=== PATIENT | male | born 1960 | race Caucasian/White ===

== ENCOUNTER 2021-07-15 18:58 | Observation (INO) | payer MEDICAID, SELFPAY ==
[~2021-07-15] VITALS: Ht 167.6 cm; Wt 81.6 kg
[2021-07-15 19:07] VITALS: BP 113/63
[2021-07-15 19:36] LABS: BASOPHILS # (AUTO) 0.1 K/uL (0.00-0.22); BASOPHILS % (AUTO) 0.7 % (0.0-2.0); EOSINOPHILS # (AUTO) 0.2 K/uL (0-0.4); EOSINOPHILS % (AUTO) 1.8 % (0.0-4.0); HEMATOCRIT 34.8 % (36-52); HEMOGLOBIN 11.9 g/dL (12.0-18.0); LYMPHOCYTES % (AUTO) 9.2 % (20.5-51.1); MEAN CORPUSCULAR HEMOGLOBIN 36 pg (27-31); MEAN CORPUSCULAR HGB CONC 34 g/dL (33-37); MEAN CORPUSCULAR VOLUME 104.2 fL (80-94); MONOCYTES # (AUTO) 0.9 K/uL (0.8-1.0); MONOCYTES % (AUTO) 8.4 % (1.7-9.3); NEUTROPHILS # (AUTO) 8.3 K/uL (1.8-7.7); NEUTROPHILS % (AUTO) 79.9 % (42.2-75.2); PLATELET COUNT (AUTO) 128 K/uL (140-450); RED BLOOD CELL COUNT(AUTO) 3.34 MIL/uL (4.20-6.10); RED CELL DISTRIBUTION WIDTH 14.8 % (11.6-13.7); WHITE BLOOD COUNT (AUTO) 10.4 K/uL (4.8-10.8)
[2021-07-15 20:10] LABS: ALBUMIN 4.2 g/dL (3.4-5.0); ASPARTATE AMINOTRANSFERASE 68 U/L (15-37); CARBON DIOXIDE 21.8 mmol/L (21-32); CHLORIDE 103 mmol/L (98-107); FREE T4 (FREE THYROXINE) 0.95 ng/dL (0.76-1.46); GFR ARICAN-AMERICAN 98 mL/min (>90); GLUCOSE 114 mg/dL (74-106); POTASSIUM 3.8 mmol/L (3.5-5.1); SODIUM SERUM 139 mmol/L (136-145); THYROID STIMULATING HORMONE 1.66 uIU/mL (0.34-3.74); TOTAL BILIRUBIN 1.4 mg/dL (0.0-1.0); UREA NITROGEN, BLOOD 26 mg/dL (7-18)
[2021-07-15 20:11] LABS: SALICYLATE < 2.8 mg/dL (2.8-20.0)
[2021-07-15] MEDS ORDERED: HALOPERIDOL IM 5 MG/ML VIAL IVP ONE (21:20)
[2021-07-15] MEDS ORDERED: THIAMINE 200 MG/2 ML VIAL IV ONE (21:55)
[2021-07-15] MEDS ORDERED: POTASSIUM CHLORIDE 10 MEQ TABER PO PRN (22:15)
[2021-07-15] MEDS ORDERED: DOCUSATE SODIUM 100 MG GELCAP PO PRN (22:15)
[2021-07-15] MEDS ORDERED: MORPHINE SULFATE 2 MG/ML SYR IVP PRN (22:15)
[2021-07-15] MEDS: NACL 0.9% 1,000 ML IV SCH (22:15)
[2021-07-15] MEDS ORDERED: SODIUM PHOS / POTASSIUM PHOS 1 PKT PDR PO PRN (22:15)
[2021-07-15] MEDS ORDERED: MAGNESIUM OXIDE 400 MG TAB PO PRN (22:15)
[2021-07-15] MEDS ORDERED: ONDANSETRON 4 MG/2 ML VIAL IM/IVP PRN (22:15)
[2021-07-15] MEDS ORDERED: ACETAMINOPHEN 325 MG TAB PO PRN (22:15)
[2021-07-15] MEDS ORDERED: HYDROcodone/APAP 5/325 MG 1 TAB TAB PO PRN (22:15)
[2021-07-15 22:54] LABS: MAGNESIUM 1.7 mg/dL (1.8-2.4); PHOSPHORUS 5.6 mg/dL (2.5-4.9)
[2021-07-15 23:15] LABS: FREE T4 (FREE THYROXINE) 0.92 ng/dL (0.76-1.46); THYROID STIMULATING HORMONE 1.76 uIU/mL (0.34-3.74)
[2021-07-16 07:19] LABS: BASOPHILS # (AUTO) 0.1 K/uL (0.00-0.22); BASOPHILS % (AUTO) 0.3 % (0.0-2.0); EOSINOPHILS # (AUTO) 0.1 K/uL (0-0.4); EOSINOPHILS % (AUTO) 0.3 % (0.0-4.0); HEMATOCRIT 33.8 % (36-52); HEMOGLOBIN 11.7 g/dL (12.0-18.0); LYMPHOCYTES # (AUTO) 0.7 K/uL (2.0-11.5); LYMPHOCYTES % (AUTO) 4.4 % (20.5-51.1); MEAN CORPUSCULAR HEMOGLOBIN 36 pg (27-31); MEAN CORPUSCULAR HGB CONC 35 g/dL (33-37); MEAN CORPUSCULAR VOLUME 104.5 fL (80-94); MONOCYTES # (AUTO) 1.3 K/uL (0.8-1.0); MONOCYTES % (AUTO) 7.6 % (1.7-9.3); NEUTROPHILS # (AUTO) 14.8 K/uL (1.8-7.7); NEUTROPHILS % (AUTO) 87.4 % (42.2-75.2); PLATELET COUNT (AUTO) 139 K/uL (140-450); RED BLOOD CELL COUNT(AUTO) 3.23 MIL/uL (4.20-6.10); RED CELL DISTRIBUTION WIDTH 14.7 % (11.6-13.7)
[2021-07-16 07:40] LABS: ANION GAP 18.3 (8-16); CARBON DIOXIDE 20.5 mmol/L (21-32); POTASSIUM 4.8 mmol/L (3.5-5.1)
[2021-07-16 08:05] VITALS: BP 118/84
[2021-07-16] MEDS: chlordiazePOXIDE 25 MG CAP PO SCH ×2 (08:32→13:27)
[2021-07-16] MEDS: NACL 0.9% 1,000 ML IV SCH (08:33)
[2021-07-16] MEDS ORDERED: THIAMINE 100 MG TAB PO SCH (09:00)
[2021-07-16] MEDS ORDERED: MULTIVITAMIN/MINERALS 1 TAB PO SCH (09:00)
[2021-07-16] MEDS ORDERED: FOLIC ACID 1 MG TAB PO SCH (09:00)
[2021-07-16] MEDS ORDERED: PANTOPRAZOLE 40 MG INJ VIAL IVP SCH (09:00)
[2021-07-16 13:21] LABS: APPEARANCE,URINE CLEAR (CLEAR); BILIRUBIN,URINE 1+ (NEGATIVE); BLOOD, URINE 3+ (NEGATIVE); COLOR,URINE DARK YELLOW (YELLOW); LEUKOCYTE ESTERASE ,URINE TRACE (NEGATIVE); NITRITE, URINE NEGATIVE (NEGATIVE); PH,URINE 5.5 (5.0-9.0); UGLUCOSE NEGATIVE (NEGATIVE)
[2021-07-16 13:36] LABS: BARBITURATE, URINE NEGATIVE ng/ml (NEG <=200); BENZODIAZEPINE, URINE POSITIVE ng/mL (NEG <=200)
[2021-07-16 13:37] LABS: CANNABINOID, URINE NEGATIVE ng/mL (NEG <=50); COCAINE, URINE NEGATIVE ng/mL (NEG <=300); OPIATE, URINE POSITIVE ng/mL (NEG <=2000); PHENCYCLIDINE SCREEN,URINE NEGATIVE ng/mL (NEG <=25)
[2021-07-16 13:39] LABS: RBC,URINE >100 /HPF (0-5); WBC,URINE 0-5 /HPF (0-5)
[2021-07-16] MEDS ORDERED: FOLI1TAB90 PO (14:58)
[2021-07-16] MEDS ORDERED: PANT40EC PO (14:58)
[2021-07-16] MEDS ORDERED: LIB25 PO (14:58)
[2021-07-16] MEDS ORDERED: THIA-34 PO (14:58)
[2021-07-16 15:57] VITALS: BP 124/72
[2021-07-17] MEDS ORDERED: PANT40EC PO ×2 (09:31→13:26)
[2021-07-17] MEDS ORDERED: THIA-34 PO ×2 (09:31→13:26)
[2021-07-17] MEDS ORDERED: FOLI1TAB90 PO ×2 (09:31→13:26)
== END 2021-07-16 16:25 | disposition home or self-care (01) ==
LOC: MED 18:58 → MMU 22:19 → INTOOBSV 22:19 → MTU 07-16 05:38
PROVIDERS: ADMIT Hospitalist; ATTEND Hospitalist
DX: F10.129 Alcohol abuse with intoxication, unspecified (principal); Z20.822 Contact with and (suspected) exposure to COVID-19; G92.9 Unspecified toxic encephalopathy; G89.29 Other chronic pain; M54.9 Dorsalgia, unspecified; D72.829 Elevated white blood cell count, unspecified; D69.6 Thrombocytopenia, unspecified; E80.6 Other disorders of bilirubin metabolism; R74.01 Elevation of levels of liver transaminase levels; E83.42 Hypomagnesemia; R31.9 Hematuria, unspecified; F17.210 Nicotine dependence, cigarettes, uncomplicated; Z79.899 Other long term (current) drug therapy; Z23 Encounter for immunization; W19.XXXA Unspecified fall, initial encounter; Y93.89 Activity, other specified; Y92.89 Other specified places as the place of occurrence of the external cause
CPT/HCPCS: 36415; 70450; 71045; 80048; 80053; 80305; 81001; 82140; 82150; 83690; 83735; 84100; 84439; 84443; 85025; 87081; 87426; 90471; 90715; 93005; 96361; 96374; 96375; 99291; C9113; G0378; G0480; G0482; J1630; J3411; Q0092

== ENCOUNTER 2022-07-27 18:51 | Emergency (ER) | payer MEDICAID ==
[~2022-07-27] VITALS: Ht 175.3 cm; Wt 83.9 kg
[~2022-07-27 18:51] MED LIST: FOLI1TAB90 PO; LIB25 PO; PANT40EC PO; THIA-34 PO
[2022-07-27 18:57] VITALS: BP 133/83
--- NOTE | 2022-07-27 19:05 | NUR ---
pt refusing any treatment from dr sibley, refusing to answer questions pertaining treatment, stating that "nothing is wrong with me, I dont do any drugs"
--- NOTE | 2022-07-27 19:09 | NUR ---
PT UNABLE TO AMBULATE. PT TAKEN TO BED 06.
[2022-07-27] MEDS ORDERED: HALOPERIDOL IM 5 MG/ML VIAL IM ONE ×2 (19:10→23:10)
[2022-07-27] MEDS ORDERED: LORazepam 2 MG/ML VIAL IM ONE ×2 (19:10→23:10)
--- NOTE | 2022-07-27 19:30 | NUR ---
61YR OLD BIB EMS C/O ETOH . PT IS A&OX3. PT STATES HE IS UNAWARE OF WHY HES HERE. DENIES CP OR SOB. PT IS ON BEDSIDE PRINTING TABLE HAND. HOB ELEVATED. BED AT LOWEST POSITION SIDE RAILS UP X2 NKDA NO MED HX
[2022-07-27 19:41] LABS: BASOPHILS # (AUTO) 0.1 K/uL (0.00-0.22); BASOPHILS % (AUTO) 0.8 % (0.0-2.0); EOSINOPHILS # (AUTO) 0.3 K/uL (0-0.4); EOSINOPHILS % (AUTO) 4.1 % (0.0-4.0); HEMATOCRIT 42.5 % (36-52); HEMOGLOBIN 14.5 g/dL (12.0-18.0); LYMPHOCYTES # (AUTO) 2.9 K/uL (2.0-11.5); LYMPHOCYTES % (AUTO) 42.2 % (20.5-51.1); MEAN CORPUSCULAR HEMOGLOBIN 35 pg (27-31); MEAN CORPUSCULAR HGB CONC 34 g/dL (33-37); MEAN CORPUSCULAR VOLUME 103.6 fL (80-94); MONOCYTES # (AUTO) 0.5 K/uL (0.8-1.0); MONOCYTES % (AUTO) 6.6 % (1.7-9.3); NEUTROPHILS # (AUTO) 3.2 K/uL (1.8-7.7); NEUTROPHILS % (AUTO) 46.3 % (42.2-75.2); PLATELET COUNT (AUTO) 165 K/uL (140-450); RED CELL DISTRIBUTION WIDTH 14.7 % (11.6-13.7)
[2022-07-27 20:10] LABS: ANION GAP 14.8 (8-16); CARBON DIOXIDE 25.8 mmol/L (21-32); CREATININE 0.8 mg/dL (0.6-1.3); POTASSIUM 3.6 mmol/L (3.5-5.1); TOTAL BILIRUBIN 0.6 mg/dL (0.0-1.0)
--- NOTE | 2022-07-27 22:12 | NUR ---
PT IS RESTING . PT MOTHER CALLED REGARDING PT CONDITION. WILL UPDATE FAMILY AT A LATER TIME. RESP EVEN AND UNLABORED. PT ON BEDSIDE CLEANER FURNITURE. HOB ELEVATED. PENDING DISPO
[2022-07-27] MEDS ORDERED: diphenhydrAMINE 50 MG/ML VIAL IM ONE (23:10)
--- NOTE | 2022-07-27 23:10 | NUR ---
DR TERRELL AT BEDSIDE. PT TRYING TO LEAVE, REDIRECTED PT BACK IN BED. PENDING MED ORDERS
[2022-07-28] MEDS ORDERED: diphenhydrAMINE 50 MG/ML VIAL ONE (00:50)
[2022-07-28] MEDS ORDERED: HALOPERIDOL IM 5 MG/ML VIAL ONE (00:50)
[2022-07-28] MEDS ORDERED: LORazepam 2 MG/ML VIAL ONE (00:51)
--- NOTE | 2022-07-28 01:02 | NUR ---
PT AWAKE WANTING TO LEAVE PT GIVEN MEDS . REDIRTECTED PT BACK TO BED
--- NOTE | 2022-07-28 01:18 | NUR ---
PT ON BEDSIDE MONITOR RESTING RESP EVEN AND UNLABORED. HOB ELEVATED. PT EGAR TO LEAVE .
--- NOTE | 2022-07-28 01:19 | NUR ---
URINE OBTAINED AND SENT TO LAB
[2022-07-28 01:34] LABS: BARBITURATE, URINE NEGATIVE ng/ml (NEG <=200); BENZODIAZEPINE, URINE POSITIVE ng/mL (NEG <=200); CANNABINOID, URINE NEGATIVE ng/mL (NEG <=50); COCAINE, URINE NEGATIVE ng/mL (NEG <=300); OPIATE, URINE NEGATIVE ng/mL (NEG <=2000); PHENCYCLIDINE SCREEN,URINE NEGATIVE ng/mL (NEG <=25)
--- NOTE | 2022-07-28 01:50 | NUR ---
2L O2 PLACED VIA NC
--- NOTE | 2022-07-28 04:16 | NUR ---
pt resting, respirations even and unlabored, HOB elevated. pt to be discharged in AM
[2022-07-28 05:36] VITALS: BP 126/70
--- NOTE | 2022-07-28 05:36 | NUR ---
Patient discharged with v/s stable. Written and verbal after care instructions given and explained. Patient verbalized understanding. Ambulatory with steady gait. All questions addressed prior to discharge. Advised to follow up with PMD.
== END 2022-07-28 05:36 | disposition home or self-care (01) ==
LOC: MED 18:51
DX: S01.01XA Laceration without foreign body of scalp, initial encounter (principal); R41.82 Altered mental status, unspecified; F10.129 Alcohol abuse with intoxication, unspecified; Y90.9 Presence of alcohol in blood, level not specified; X58.XXXA Exposure to other specified factors, initial encounter; Y93.89 Activity, other specified; Y92.89 Other specified places as the place of occurrence of the external cause; Y99.8 Other external cause status
CPT/HCPCS: 36415; 70450; 72125; 80053; 80305; 85025; 96372; 99285; G0482; J1200; J1630; J2060